=== PATIENT | female | born 1980 | race Hispanic/Latino ===

== ENCOUNTER 2019-06-28 17:46 | Emergency (ER) | payer OTHER ==
[~2019-06-28] VITALS: Ht 149.9 cm; Wt 48.0 kg
[~2019-06-28 17:46] MED LIST: ULTRAM50 M1 PO
[2019-06-28] MEDS ORDERED: AUGMENTIN500TAB PO (18:49)
[2019-06-28 19:30] VITALS: BP 147/84
[2019-06-28] MEDS ORDERED: PHENOBARBITAL PO (19:30)
== END 2019-06-28 19:25 | disposition home or self-care (01) | DRG 605 ==
LOC: ED 17:46
PROC: 0HQKXZZ Repair Right Lower Leg Skin, External Approach (ICD-10-PCS; principal; 2019-06-28)
DX: S81.851A Open bite, right lower leg, initial encounter (principal); W54.0XXA Bitten by dog, initial encounter; Y93.89 Activity, other specified; Y92.410 Unspecified street and highway as the place of occurrence of the external cause; Y99.0 Civilian activity done for income or pay

== ENCOUNTER 2019-07-08 08:23 | Emergency (ER) | payer OTHER ==
[~2019-07-08] VITALS: Ht 149.9 cm; Wt 48.0 kg
[~2019-07-08 08:23] MED LIST changes: +AUGMENTIN500TAB PO; +PHENOBARBITAL PO
[2019-07-08 10:40] VITALS: BP 128/85
== END 2019-07-08 10:40 | disposition home or self-care (01) | DRG 950 ==
LOC: ED 08:23
DX: S81.851D Open bite, right lower leg, subsequent encounter (principal); W54.0XXD Bitten by dog, subsequent encounter

== ENCOUNTER 2020-10-22 17:17 | Emergency (ER) | payer SELFPAY | END 2020-10-22 18:07 | disposition left against medical advice (07) | DRG 951 | LOC: ED 17:17 → LWOBS 18:07 | DX: Z53.21 Procedure and treatment not carried out due to patient leaving prior to being seen by health care provider (principal) ==

== ENCOUNTER 2022-06-29 11:06 | Emergency (ER) | payer OTHER ==
[~2022-06-29] VITALS: Ht 149.9 cm; Wt 60.0 kg
[2022-06-29] MEDS ORDERED: OB COMPLET2 PO (11:26)
[2022-06-29 11:36] LABS: URINE BILIRUBIN - DIPSTICK NEGATIVE (NEGATIVE); URINE BLOOD DIPSTICK LARGE (NEGATIVE); URINE COLOR YELLOW; URINE GLUCOSE - DIPSTICK NEGATIVE (NEGATIVE); URINE KETONE NEGATIVE (NEGATIVE); URINE LEUK ESTERASE TRACE (NEGATIVE); URINE PH 6.5 (4.5-8.0); URINE PROTEIN - DIPSTICK NEGATIVE (NEG-TRACE); URINE UROBILINOGEN - DIPSTICK 0.2 E.U./dL (0.2)
[2022-06-29 11:39] LABS: URINE NITRITE - DIPSTICK NEGATIVE (Negative)
[2022-06-29 11:47] LABS: URINE SQUAMOUS EPITHELIAL CELL FEW EPI/hpf (0-FEW)
[2022-06-29 13:12] LABS: HEMATOCRIT 39.6 % (37.0-47.0); HEMOGLOBIN 13.3 g/dl (12.0-16.0); IMMATURE GRANULOCYTES 0.1 % (0.0-5.0); MEAN CELL VOLUME 96.1 fL CALC (80.0-100.0); MEAN CORPUSCULAR HGB 32.3 pG CALC (26.0-32.0); MEAN CORPUSCULAR HGB CONC 33.6 g/dL CAL (32.0-36.0); NEUT# 5.68 thou/uL (2.00-7.15); RED BLOOD COUNT 4.12 mill/uL (4.20-5.60); RED CELL DISTRI WIDTH 13.8 % (11.5-15.5)
[2022-06-29 13:40] LABS: ALBUMIN 4.7 g/dL (3.2-5.0); ALKALINE PHOSPHATASE 96 u/l (38-126); ANION GAP 13 (6-22 (CALC)); BILIRUBIN, TOTAL 0.2 mg/dL (0.0-1.4); BUN 7 mg/dL (7-17); BUN/CREATININE RATIO 14 (12-20 (CALC)); CARBON DIOXIDE 27 mmol/l (22-30); CHLORIDE 104 mmol/l (95-108); CREATININE 0.5 mg/dL (0.5-1.0); GFR FOR AFR.AMER. > 60 ML/MIN (>=60 (CALC)); GFR OTHER RACES > 60 ML/MIN (>=60 (CALC)); POTASSIUM 3.9 mmol/l (3.5-5.1); SGOT/AST 26 u/l (14-36); SODIUM 140 mmol/l (137-146); TOTAL PROTEIN 7.5 g/dL (6.3-8.2)
[2022-06-29 13:56] LABS: BETA-HCG, QUANT(RESULT NUMBER) 2626 mIU/mL
[2022-06-29 14:32] VITALS: BP 145/91
[2022-06-29 14:45] VITALS: BP 122/81
[2022-06-29 15:00] VITALS: BP 122/79
[2022-06-29 15:15] VITALS: BP 125/80
[2022-06-29 15:30] VITALS: BP 123/80
[2022-06-29] MEDS ORDERED: ONDANSETRON4 MG PO (15:37)
[2022-06-29 15:46] VITALS: BP 123/80
== END 2022-06-29 15:47 | disposition home or self-care (01) | DRG 833 ==
LOC: ED 11:06
PROVIDERS: Family Medicine; Nurse Practitioner
DX: O20.0 Threatened abortion (principal); O99.350 Diseases of the nervous system complicating pregnancy, unspecified trimester; G40.909 Epilepsy, unspecified, not intractable, without status epilepticus; Z3A.00 Weeks of gestation of pregnancy not specified

== ENCOUNTER 2022-11-04 10:44 | Emergency (ER) | payer OTHER ==
[~2022-11-04] VITALS: Ht 149.9 cm; Wt 54.0 kg
[~2022-11-04 10:44] MED LIST changes: +OB COMPLET2 PO; +ONDANSETRON4 MG PO
[2022-11-04 10:49] VITALS: BP 163/92
[2022-11-04 11:34] VITALS: BP 163/92
== END 2022-11-04 11:48 | disposition home or self-care (01) | DRG 605 ==
LOC: ED 10:44
DX: S01.01XA Laceration without foreign body of scalp, initial encounter (principal); W45.8XXA Other foreign body or object entering through skin, initial encounter